=== PATIENT | female | born 1980 | race Caucasian/White ===

== ENCOUNTER 2020-10-13 08:11 | Outpatient (CLI) | payer MEDICAID, SELFPAY | END 2020-10-13 08:12 | disposition home or self-care (01) | LOC: WOUND 08:12 | PROVIDERS: Family Provider Family Medicine; Visit Provider Nurse Practitioner Family | DX: T81.31XA Disruption of external operation (surgical) wound, not elsewhere classified, initial encounter (principal); Y83.8 Other surgical procedures as the cause of abnormal reaction of the patient, or of later complication, without mention of misadventure at the time of the procedure | CPT/HCPCS: 87070; 87176; 87205; G0463 ==